=== PATIENT | female | born 1945 | race Two or more races ===

== ENCOUNTER 2024-09-23 14:52 | Observation (INO) | payer OTHER ==
[2024-09-23 14:58] VITALS: BMI 25.9
[2024-09-23] MEDS ORDERED: ACETAMINOPHEN INJECTION 100 ML ONE (16:15)
[2024-09-23] MEDS: SODIUM CHLORIDE 0.9% 500 ML INFUS.BAG IV ONE (16:20)
[2024-09-23 16:21] LABS: BASO % 0.1 % (0-2.0); EOS % 0.3 % (0-4.5); HEMATOCRIT 41.2 % (32.4-45.2); HEMOGLOBIN 13.6 GM/dL (10.7-15.3); LYMPH % 14.9 % (8-40); MCH 27.7 pg (25.7-33.7); MCHC 33.2 g/dl (32.0-36.0); MEAN CELL VOLUME 83.6 fl (80-96); MEAN PLT VOLUME 9.5 fl (7.5-11.1); MONO % 4.1 % (3.8-10.2); NEUT % 80.6 % (42.8-82.8); PLATELET COUNT 235 10^3/uL (134-434); RBC 4.92 M/mm3 (3.60-5.2); RDW 12.9 % (11.6-15.6); WHITE BLOOD COUNT 15.6 K/mm3 (4.0-10.0)
[2024-09-23] MEDS: ACETAMINOPHEN 1000 MG/100 ML BAG IVPB ONE ×2 (16:21→22:27)
[2024-09-23 16:32] LABS: ACTIVATED PTT 27.3 SECONDS (25.2-36.5); INR 1.08 (0.83-1.09); PROTHROMBIN TIME (PATIENT) 11.8 SEC (9.7-13.0)
[2024-09-23 16:43] LABS: POTASSIUM 3.7 mmol/L (3.5-5.1)
[2024-09-23 16:45] LABS: CALCIUM 9.2 mg/dL (8.5-10.1)
[2024-09-23 16:46] LABS: ALBUMIN 3.9 g/dl (3.4-5.0); BLOOD UREA NITROGEN 16.6 mg/dL (7-18)
[2024-09-23 16:49] LABS: CREATININE 0.7 mg/dL (0.55-1.3)
[2024-09-23 16:50] LABS: BILIRUBIN,TOTAL 0.4 mg/dL (0.2-1); TOT PROT 7.8 g/dl (6.4-8.2)
[2024-09-23 16:54] LABS: N-TERMINAL BNP 13.6 pg/ml (5-450)
[2024-09-23 19:04] LABS: EPI CELLS 18 /uL (0-25.1); HYALINE CASTS 0 /uL (0-3.1); PH,URINE 7.5 (5.0-8.0); URINE APPEARANCE CLEAR; URINE BACTERIA 457 /uL (0-1359); URINE BILIRUBIN NEGATIVE (NEGATIVE); URINE COLOR YELLOW; URINE GLUCOSE (UA) NEGATIVE (NEGATIVE); URINE KETONE NEGATIVE (NEGATIVE); URINE LEUK ESTERASE 2+ (NEGATIVE); URINE NITRITE NEGATIVE (NEGATIVE); URINE PROTEIN NEGATIVE (NEGATIVE); URINE RBC 40 /uL (0-23.9); URINE UROBILINOGEN 0.2 mg/dL (0.2-1.0); URINE WBC 34 /uL (0-25.8)
[2024-09-24] MEDS ORDERED: ASPIRIN 325 MG TABLET ONE (00:50)
[2024-09-24] MEDS: ASPIRIN 325 MG TABLET PO ONE (00:54)
[2024-09-24] MEDS ORDERED: MECLIZINE HCL 25 MG TABLET (FP) PO PRN (06:43)
[2024-09-24 07:10] LABS: BASO % 0.2 % (0-2.0); EOS % 2.1 % (0-4.5); HEMATOCRIT 37.6 % (32.4-45.2); LYMPH % 34.7 % (8-40); MCH 28.5 pg (25.7-33.7); MCHC 34.5 g/dl (32.0-36.0); MEAN CELL VOLUME 82.6 fl (80-96); MEAN PLT VOLUME 9.7 fl (7.5-11.1); MONO % 7.1 % (3.8-10.2); NEUT % 55.9 % (42.8-82.8); PLATELET COUNT 205 10^3/uL (134-434); RBC 4.55 M/mm3 (3.60-5.2); RDW 12.8 % (11.6-15.6); WHITE BLOOD COUNT 9.4 K/mm3 (4.0-10.0)
[2024-09-24 07:13] LABS: POTASSIUM 5.1 mmol/L (3.5-5.1)
[2024-09-24 07:16] LABS: ALBUMIN 3.4 g/dl (3.4-5.0); BLOOD UREA NITROGEN 15.6 mg/dL (7-18)
[2024-09-24 07:17] LABS: CHOLESTEROL 254 mg/dL (50-200); MAGNESIUM 2.3 mg/dL (1.8-2.4)
[2024-09-24 07:18] LABS: LDL CHOLESTEROL (ONLY SJRH) 163 mg/dL (5-100)
[2024-09-24 07:19] LABS: CREATININE 0.8 mg/dL (0.55-1.3); HDL CHOLESTEROL 58 mg/dL (40-60)
[2024-09-24 07:20] LABS: PHOSPHOROUS 4.4 mg/dL (2.5-4.9)
[2024-09-24 07:21] LABS: BILIRUBIN,TOTAL 0.5 mg/dL (0.2-1)
[2024-09-24] MEDS ORDERED: ASPIRIN COATED 81 MG TABLET.EC ONE (09:19)
[2024-09-24] MEDS ORDERED: VALSARTAN 80 MG TABLET ONE (09:20)
[2024-09-24] MEDS: VALSARTAN 160 MG TABLET PO SCH (09:30)
[2024-09-24] MEDS: HYDROCHLOROTHIAZIDE 12.5 MG CAPSULE (FP) PO SCH (09:30)
[2024-09-24] MEDS: ASPIRIN COATED 81 MG TABLET.EC PO SCH (09:30)
[2024-09-24] MEDS: ATORVASTATIN CA 40 MG TABLET (FP) PO ONE (11:25)
[2024-09-24] MEDS ORDERED: ATORVASTATIN CA 40 MG TABLET (FP) ONE (11:33)
[2024-09-24 12:32] VITALS: BP 146/79; PULSE 73; RESP 20; TEMP 99.4
[2024-09-25] MEDS ORDERED: PATIENT'S OWN MEDICATION (NON-FORMULARY) (Valsartan/Hydrochlorothiazide [Valsartan-Hctz 32 PO SCH (10:00)
== END 2024-09-24 18:20 | disposition home or self-care (01) ==
LOC: JER 14:52 → JERBED 19:56
PROVIDERS: ADMIT Internal Medicine
PROC: 3E0337Z Introduction of Electrolytic and Water Balance Substance into Peripheral Vein, Percutaneous Approach (ICD-10-PCS; principal; 2024-09-23)
DX: R42 Dizziness and giddiness (principal); I10 Essential (primary) hypertension; E78.5 Hyperlipidemia, unspecified; D72.829 Elevated white blood cell count, unspecified
CPT/HCPCS: 0241U-QW; 36415; 70450-TC; 70551-TC; 71045-TC-FY; 80053; 80061; 81003; 83036; 83735; 83880; 84100; 84484; 85025; 85379; 85610; 85730; 93005; 93010; 93306-TC; 93880-TC; 96374; 96376; 99285-25; G0378; J0131